=== PATIENT | male | born 1960 ===

== ENCOUNTER 2016-10-20 08:07 | Inpatient (IN) | payer MEDICARE ==
[2016-10-15 10:32] VITALS: BMI 30.4
[2016-10-20 20:21] VITALS: RESP 20
[2016-10-21 09:22] VITALS: BP 114/72; PULSE 67; TEMP 98.1; O2SAT 94
== END 2016-10-21 14:30 | disposition home or self-care (01) | DRG 336 ==
LOC: C.SDS 08:07 → EDSEX 08:07 → C.9S 12:12 → C.6T 19:13
PROVIDERS: ADMIT Surgery; ATTEND Surgery
PROC: 0WQF0ZZ Repair Abdominal Wall, Open Approach (ICD-10-PCS; principal; 2016-10-20)
PROC: 0DNE0ZZ Release Large Intestine, Open Approach (ICD-10-PCS; 2016-10-20)
PROC: 0DN80ZZ Release Small Intestine, Open Approach (ICD-10-PCS; 2016-10-20)
PROC: 0HX7XZZ Transfer Abdomen Skin, External Approach (ICD-10-PCS; 2016-10-20)
DX: K43.6 Other and unspecified ventral hernia with obstruction, without gangrene (principal); S36.539A Laceration of unspecified part of colon, initial encounter; K66.0 Peritoneal adhesions (postprocedural) (postinfection); S36.439A Laceration of unspecified part of small intestine, initial encounter; I10 Essential (primary) hypertension; Y69 Unspecified misadventure during surgical and medical care; I25.10 Atherosclerotic heart disease of native coronary artery without angina pectoris; Z95.1 Presence of aortocoronary bypass graft; I25.2 Old myocardial infarction; E78.00 Pure hypercholesterolemia, unspecified; X58.XXXA Exposure to other specified factors, initial encounter